=== PATIENT | male | born 1985 | race Caucasian/White ===

== ENCOUNTER 2017-11-03 00:50 | Emergency (ER) | payer OTHER ==
[2017-11-03 00:52] VITALS: BP 130/80; PULSE 101; RESP 16; TEMP 96.7; O2SAT 98
== END 2017-11-03 01:16 | disposition left against medical advice (07) ==
LOC: NED 00:50
DX: Z00.8 Encounter for other general examination (principal); Z53.21 Procedure and treatment not carried out due to patient leaving prior to being seen by health care provider
CPT/HCPCS: 99281

== ENCOUNTER 2017-11-03 16:00 | Emergency (ER) | payer SELFPAY ==
[~2017-11-03] VITALS: Ht 175.3 cm; Wt 75.0 kg
[2017-11-03 16:01] VITALS: BP 128/75; PULSE 102; RESP 16; TEMP 98.7; O2SAT 98
--- NOTE | 2017-11-03 18:38 | PD ---
HPI Chief Complaint: Psychiatric Symptoms Time Seen by Provider: 18:16 Travel History International Travel<30 days: No Contact w/Intl Traveler<30days: No Traveled to known affect area: No History of Present Illness HPI 32-year-old male that presents to the ED for evaluation of voluntary psych evaluation. Patient was brought here secondary to depression and per patient his been feeling suicidal for the past couple days. Per patient he does abuse cocaine and last used 2 weeks ago per patient. He denies any IV drug abuse. He says that he did drink beer yesterday. He states that he takes lithium and Adderall as well as other medications and he has been diagnosed with bipolar disorder and depression. Per patient has a history of schizophrenia. He states that he has no other medical process. No cuts. He states that he is not suicidal at the time but he comes and goes. He has no plan. Family apparently is concerned because of the patient's medications might not be working for him. He has no allergies to medication. No other medical issues. Apparently symptoms have been worsening for the past couple of days. Nothing makes it better. Denies any homicidal ideation. No hallucinations. PFSH Past Medical History Patient Takes Glucophage: No Diminished Hearing: No Psychiatric: Yes (Per pt.) Tetanus Vaccination: > 5 Years ?: Not Past Surgical History Surgical History: No Previous Surgery Social History Alcohol Use: Yes (Occassionally per pt. ) Tobacco Use: Yes (1 PACK A DAY FOR 8 YEARS) Substance Use: Yes (Hx Crack/Cocaine/Rx pills per pt - last use a couple of weeks per pt. ) Allergies-Medications (Allergen,Severity, Reaction): Coded Allergies: No Known Allergies (Verified Adverse Reaction, Unknown, 11/03/17) Reported Meds & Prescriptions Reported Meds & Active Scripts Active Review of Systems Except as stated in HPI: all other systems reviewed are Neg Physical Exam Narrative GENERAL: SKIN: Warm and dry. HEAD: Atraumatic. Normocephalic. EYES: Pupils equal and round 4 mm reactive to light and accommodation. No scleral icterus. No injection or drainage. ENT: No nasal bleeding or discharge. Mucous membranes pink and moist. Tongue is midline. No uvula deviation. NECK: Trachea midline. No JVD. CARDIOVASCULAR: Regular rate and rhythm. No murmurs, S3, S4. RESPIRATORY: No accessory muscle use. Clear to auscultation. Breath sounds equal bilaterally. GASTROINTESTINAL: Abdomen soft, non-tender, nondistended. Hepatic and splenic margins not palpable. MUSCULOSKELETAL: Extremities without clubbing, cyanosis, or edema. No obvious deformities. Full range of motion of the upper and lower extremities bilaterally. 2+ pulses bilaterally. NEUROLOGICAL: Awake and alert. No obvious cranial nerve deficits. Motor grossly within normal limits. Five out of 5 muscle strength in the arms and legs. Normal speech. PSYCHIATRIC: Appropriate mood and affect; insight and judgment normal. Data Data Last Documented VS Vital Signs Date Time Temp Pulse Resp B/P (MAP) Pulse Ox O2 Delivery O2 Flow Rate FiO2 11/03/17 16:01 98.7 102 16 128/75 (92) 98 Orders Orders Diet Regular Basic (11/03/17 Dinner) Complete Blood Count With Diff (11/03/17 18:18) Comprehensive Metabolic Panel (11/03/17 18:18) Psych Screen (11/03/17 18:18) Drug Screen, Random Urine (11/03/17 18:18) Alcohol (Ethanol) (11/03/17 18:18) Salicylates (Aspirin) (11/03/17 18:18) Tylenol (Acetaminophen) (11/03/17 18:18) [place] (Li) (11/03/17 18:32) MDM Medical Decision Making Medical Screen Exam Complete: Yes Emergency Medical Condition: Yes Medical Record Reviewed: Yes Differential Diagnosis Depression versus suicidal ideation versus anxiety versus adjustment disorder versus mood disorder versus bipolar disorder versus schizophrenia versus paranoid disorder versus psychosis versus substance abuse versus alcohol abuse versus alcohol induced psychosis versus homicidality addition versus cutting versus personality disorder Narrative Course 32-year-old male that presents to the ED for evaluation of psych. Patient was properly examined and was found to have signs and symptoms consistent appears to be psychiatric illness. No sign of acute medical distress. Labs were done. Patient will be medically cleared. Okay to be seen by psych. Mental health screening was discussed with the patient. Diagnosis Primary Impression: Depression Qualified Codes: F32.1 - Major depressive disorder, single episode, moderate Gibran Mckay Nov 03, 2017 18:38
[2017-11-03 20:06] LABS: AUTOMATED NEUTROPHIL # 4.7 TH/MM3 (1.8-7.7); BASOPHIL % 0.5 % (0.0-2.0); EOSINOPHIL # 0.1 TH/MM3 (0-0.4); EOSINOPHIL % 1.1 % (0.0-4.0); HEMATOCRIT 39.7 % (39.0-51.0); HEMOGLOBIN 13.8 GM/DL (13.0-17.0); LYMPH % 24.4 % (9.0-44.0); LYMPHOCYTE # 1.7 TH/MM3 (1.0-4.8); MEAN CELL VOLUME 90.7 FL (80.0-100.0); MEAN CORPUSCULAR HEMOGLOBIN 31.5 PG (27.0-34.0); MEAN CORPUSCULAR HGB CONC 34.8 % (32.0-36.0); MEAN PLATELET VOLUME 8.1 FL (7.0-11.0); MONO % 8.5 % (0.0-8.0); MONOCYTE # 0.6 TH/MM3 (0-0.9); NEUT % 65.5 % (16.0-70.0); PLATELET COUNT 289 TH/MM3 (150-450); RED BLOOD COUNT 4.38 MIL/MM3 (4.50-5.90); RED CELL DISTRIBUTION WIDTH 12.7 % (11.6-17.2); WHITE BLOOD COUNT 7.1 TH/MM3 (4.0-11.0)
[2017-11-03 20:18] LABS: ALBUMIN 3.8 GM/DL (3.4-5.0); AST (GOT) 11 U/L (15-37); BICARBONATE 29.4 MEQ/L (21.0-32.0); BLOOD UREA NITROGEN 12 MG/DL (7-18); CALCIUM 8.9 MG/DL (8.5-10.1); CHLORIDE 105 MEQ/L (98-107); CREATININE 0.96 MG/DL (0.60-1.30); GLOMERULAR FILTRATION RATE 90 ML/MIN (>89); GLUCOSE,RANDOM 95 MG/DL (74-106); SODIUM (NA) 140 MEQ/L (136-145)
[2017-11-03 20:19] LABS: ALT (GPT) 17 U/L (12-78)
[2017-11-03 20:21] LABS: ALKALINE PHOSPHATASE 53 U/L (45-117); TOTAL BILIRUBIN ADULT 0.2 MG/DL (0.2-1.0); TOTAL PROTEIN 7.2 GM/DL (6.4-8.2)
[2017-11-03 20:26] LABS: ACETAMINOPHEN LESS THAN 2.0 MCG/ML (10.0-30.0)
[2017-11-03 22:09] VITALS: BP 123/67; PULSE 90; RESP 16; O2SAT 99
[2017-11-04 02:10] VITALS: BP 120/75; PULSE 79; RESP 14; O2SAT 99
[2017-11-04 10:25] VITALS: BP 121/77; PULSE 78; RESP 18; O2SAT 98
--- NOTE | 2017-11-04 13:53 | PD ---
History of Present Illness Chief Complaint: Psychiatric Symptoms Time Seen by Provider: 13:45 Travel History International Travel<30 Days: No Contact w/Intl Traveler<30days: No Known affected area: No Legal Status Legal Status: Voluntary History of Present Illness: 32-year-old male presents voluntarily with history of schizophrenia, reporting he is here for evaluation. Patient's mother has already called and has a list of concerns apparently. Patient has been treated with antipsychotic medication , lithium and amphetamines. He states he [place]. He also reports he was told to take the lithium as needed for racing thoughts. The patient does admit to intermittent psychotic symptoms but denies such symptoms currently. He also denies suicidal or homicidal ideation, plan or intent. His cognition is intact. He is verbally cesar for safety and he is competent to do so. Although he was offered admission, he wants to return home, where he resides with his mother. He indicates he will follow up at [facility], on an outpatient basis. He was also offered prescriptions but states he has enough medicine for now. PFSH Past Medical History Patient Takes Glucophage: No Diminished Hearing: No Psychiatric: Yes (Per pt.) Tetanus Vaccination: > 5 Years ?: Not Past Surgical History Surgical History: No Previous Surgery Psychiatric History Psychiatric History Hx Psychiatric Treatment: DEPRESSION, SCHIZOAFFECTIVE DISORDER History of Inpatient Treatment: No Guns or firearms in home: No Social History Hx Alcohol Use: Yes (Occassionally per pt. ) Hx Tobacco Use: Yes (1 PACK A DAY FOR 8 YEARS) Hx Substance Use: Yes (Hx Crack/Cocaine/Rx pills per pt - last use a couple of weeks per pt. ) Hx of Substance Use Treatment: No Allergies-Medications (Allergen,Severity, Reaction): Coded Allergies: No Known Allergies (Verified Adverse Reaction, Unknown, 11/03/17) Reported Meds & Prescriptions Reported Meds & Active Scripts Active Review of Systems Psychiatric: COMPLAINS OF: Anxiety, Depression Except as stated in HPI: all other systems reviewed are Neg Mental Status Examination Appearance: Appropriate Consciousness: Alert Orientation: x4 Motor Activity: Normal gait Speech: Unremarkable Language: Adequate Fund of Knowledge: Adequate Attention and Concentration: Adequate Memory: Unremarkable Mood: Appropriate Affect: Blunt Thought Process & Associations: Intact Thought Content: Appropriate Hallucination Type: None Delusion Type: None Suicidal Ideation: No Suicidal Plan: No Suicidal Intention: No Homicidal Ideation: No Homicidal Plan: No Homicidal Intention: No Insight: Adequate Judgment: Adequate MDM Medical Decision Making Medical Record Reviewed: Yes Assessment/Plan Patient interviewed at bedside. Electronic medical record reviewed. Case discussed with nurse Alas. Nurse Alas will call patient's mother to obtain information with patient's permission. Nurse Alas also asked by this physician to provide information regarding patient's current prescription medicines including the intermittent use of lithium, which is inappropriate and the use of amphetamines with someone who is potentially psychotic, which is again and appropriate. Patient does not meet [place] act criteria at this time and does not meet criteria for involuntary psychiatric hospitalization. Therefore he is being released home. Orders Orders Diet Regular Basic (11/03/17 Dinner) Complete Blood Count With Diff (11/03/17 18:18) Comprehensive Metabolic Panel (11/03/17 18:18) Psych Screen (11/03/17 18:18) Drug Screen, Random Urine (11/03/17 18:18) Alcohol (Ethanol) (11/03/17 18:18) Salicylates (Aspirin) (11/03/17 18:18) Tylenol (Acetaminophen) (11/03/17 18:18) [place] (Li) (11/03/17 18:32) Diet Regular Basic (11/04/17 Breakfast) Diet Regular Basic (11/04/17 Lunch) Results Vital Signs Date Time Temp Pulse Resp B/P (MAP) Pulse Ox O2 Delivery O2 Flow Rate FiO2 11/04/17 10:25 78 18 121/77 (92) 98 11/04/17 02:10 79 14 120/75 (90) 99 11/03/17 22:09 90 16 123/67 (85) 99 11/03/17 16:01 98.7 102 16 128/75 (92) 98 Laboratory Tests Test 11/03/17 19:30 11/03/17 19:45 White Blood Count 7.1 Red Blood Count 4.38 Hemoglobin 13.8 Hematocrit 39.7 Mean Corpuscular Volume 90.7 Mean Corpuscular Hemoglobin 31.5 Mean Corpuscular Hemoglobin Concent 34.8 Red Cell Distribution Width 12.7 Platelet Count 289 Mean Platelet Volume 8.1 Neutrophils (%) (Auto) 65.5 Lymphocytes (%) (Auto) 24.4 Monocytes (%) (Auto) 8.5 Eosinophils (%) (Auto) 1.1 Basophils (%) (Auto) 0.5 Neutrophils # (Auto) 4.7 Lymphocytes # (Auto) 1.7 Monocytes # (Auto) 0.6 Eosinophils # (Auto) 0.1 Basophils # (Auto) 0.0 CBC Comment DIFF FINAL Differential Comment Blood Urea Nitrogen 12 Creatinine 0.96 Random Glucose 95 Total Protein 7.2 Albumin 3.8 Calcium Level 8.9 Alkaline Phosphatase 53 Aspartate Amino Transf (AST/SGOT) 11 Alanine Aminotransferase (ALT/SGPT) 17 Total Bilirubin 0.2 Sodium Level 140 Potassium Level 4.0 Chloride Level 105 Carbon Dioxide Level 29.4 Anion Gap 6 Estimat Glomerular Filtration Rate 90 Salicylates Level LESS THAN 1.7 Acetaminophen Level LESS THAN 2.0 [place] Level LESS THAN 0.1 Ethyl Alcohol Level LESS THAN 3 Urine Opiates Screen NEG Urine Barbiturates Screen NEG Urine Amphetamines Screen POS Urine Benzodiazepines Screen NEG Urine Cocaine Screen NEG Urine Cannabinoids Screen NEG Diagnosis Primary Impression: Persistent adjustment disorder with mixed anxiety and depressed mood Rcik Koch MD Nov 04, 2017 13:53
--- NOTE | 2017-11-04 15:27 | PD ---
Physical Exam Date Seen by Provider: Nov 04, 2017 Time Seen by Provider: 15:26 Narrative 32-year-old male patient presents our facility for involuntary psychiatric evaluation. He was cleared medically and psychiatrically. I was asked to disposition the patient. No homicidal, suicidal ideation at this time. Patient is stable for discharge. Patient will be discharged home at this time. Data Data Last Documented VS Vital Signs Date Time Temp Pulse Resp B/P (MAP) Pulse Ox O2 Delivery O2 Flow Rate FiO2 11/04/17 16:10 11/04/17 10:25 78 18 98 11/03/17 16:01 98.7 Orders Orders Diet Regular Basic (11/03/17 Dinner) Complete Blood Count With Diff (11/03/17 18:18) Comprehensive Metabolic Panel (11/03/17 18:18) Psych Screen (11/03/17 18:18) Drug Screen, Random Urine (11/03/17 18:18) Alcohol (Ethanol) (11/03/17 18:18) Salicylates (Aspirin) (11/03/17 18:18) Tylenol (Acetaminophen) (11/03/17 18:18) [place] (Li) (11/03/17 18:32) Diet Regular Basic (11/04/17 Breakfast) Diet Regular Basic (11/04/17 Lunch) Ed Discharge Order (11/04/17 15:27) Labs Laboratory Tests Test 11/03/17 19:30 11/03/17 19:45 White Blood Count 7.1 TH/MM3 Red Blood Count 4.38 MIL/MM3 Hemoglobin 13.8 GM/DL Hematocrit 39.7 % Mean Corpuscular Volume 90.7 FL Mean Corpuscular Hemoglobin 31.5 PG Mean Corpuscular Hemoglobin Concent 34.8 % Red Cell Distribution Width 12.7 % Platelet Count 289 TH/MM3 Mean Platelet Volume 8.1 FL Neutrophils (%) (Auto) 65.5 % Lymphocytes (%) (Auto) 24.4 % Monocytes (%) (Auto) 8.5 % Eosinophils (%) (Auto) 1.1 % Basophils (%) (Auto) 0.5 % Neutrophils # (Auto) 4.7 TH/MM3 Lymphocytes # (Auto) 1.7 TH/MM3 Monocytes # (Auto) 0.6 TH/MM3 Eosinophils # (Auto) 0.1 TH/MM3 Basophils # (Auto) 0.0 TH/MM3 CBC Comment DIFF FINAL Differential Comment Blood Urea Nitrogen 12 MG/DL Creatinine 0.96 MG/DL Random Glucose 95 MG/DL Total Protein 7.2 GM/DL Albumin 3.8 GM/DL Calcium Level 8.9 MG/DL Alkaline Phosphatase 53 U/L Aspartate Amino Transf (AST/SGOT) 11 U/L Alanine Aminotransferase (ALT/SGPT) 17 U/L Total Bilirubin 0.2 MG/DL Sodium Level 140 MEQ/L Potassium Level 4.0 MEQ/L Chloride Level 105 MEQ/L Carbon Dioxide Level 29.4 MEQ/L Anion Gap 6 MEQ/L Estimat Glomerular Filtration Rate 90 ML/MIN Salicylates Level LESS THAN 1.7 MG/DL Acetaminophen Level LESS THAN 2.0 MCG/ML [place] Level LESS THAN 0.1 MEQ/L Ethyl Alcohol Level LESS THAN 3 MG/DL Urine Opiates Screen NEG Urine Barbiturates Screen NEG Urine Amphetamines Screen POS Urine Benzodiazepines Screen NEG Urine Cocaine Screen NEG Urine Cannabinoids Screen NEG MDM Supervised Visit with ALEAH: Yes Differential Diagnosis Depression versus suicidal ideation versus anxiety versus adjustment disorder versus mood disorder versus bipolar disorder versus schizophrenia versus paranoid disorder versus psychosis versus substance abuse versus alcohol abuse versus alcohol induced psychosis versus homicidality addition versus cutting versus personality disorder Narrative Course 32-year-old male patient presents our facility for involuntary psychiatric evaluation. He was cleared medically and psychiatrically. I was asked to disposition the patient. No homicidal, suicidal ideation at this time. Patient is stable for discharge. Patient will be discharged home at this time. Diagnosis Primary Impression: Persistent adjustment disorder with mixed anxiety and depressed mood Additional Instruction: Please return to emergency department if your symptoms return or worsen. Disposition: 01 DISCHARGE HOME Condition: Stable Jessa Subramanian Nov 04, 2017 15:27
== END 2017-11-04 16:12 | disposition home or self-care (01) ==
LOC: NEPJ 16:00
DX: F43.23 Adjustment disorder with mixed anxiety and depressed mood (principal); F20.9 Schizophrenia, unspecified; F17.200 Nicotine dependence, unspecified, uncomplicated
CPT/HCPCS: 80053; 80178; 80307; 85025; 99284